=== PATIENT | female | born 1950 | race Caucasian/White ===

== ENCOUNTER → 2017-09-10 | Outpatient (CLI) | payer MEDICARE, OTHER ==
[2017-09-10 09:38] LABS: Basophils # (auto) 0.1 uL; Eosinophils # (auto) 0.4 uL; Eosinophils % (auto) 4.8 % (0.0-7.0); Hemoglobin 10.7 g/dL (12.2-16.2); Lymphocytes # (auto) 1.8 uL; Monocytes # (auto) 0.6 uL; Neutrophils # (auto) 6.2 uL; Nucleated Red Blood Cells % 0.1 %
[2017-09-10 09:39] LABS: Basophils % (auto) 0.9 % (0.0-2.0); Hematocrit 34.6 % (36.0-46.0); Mean Corpuscular Hemoglobin 21.1 pg (28.0-32.0); Mean Corpuscular Volume 68.2 fL (80.0-100.0); Monocytes % (auto) 6.3 % (0.0-12.0); Platelet Count (auto) 369 10^3/uL (140-450); Red Blood Cells 5.08 10^6/uL (4.0-5.20); White Blood Cell 9.1 10^3/uL (4.4-10.8)
[2017-09-10 09:45] LABS: Red Cell Distribution Width 24.1 % (11.8-14.3)
[2017-09-10 13:14] LABS: Cholesterol 113 mg/dL (< 200); HDL Cholesterol 49 mg/dL (40-59); LDL Cholesterol 61 mg/dL (< 100); Triglycerides 70 mg/dL (< 150)
== END | disposition home or self-care (01) ==
LOC: LAB 08:55
PROVIDERS: ATTEND Internal Medicine
DX: E11.9 Type 2 diabetes mellitus without complications (principal); E78.00 Pure hypercholesterolemia, unspecified; D64.9 Anemia, unspecified
CPT/HCPCS: 36415; 80061; 83036; 85025

== ENCOUNTER → 2017-10-07 | Outpatient (CLI) | payer MEDICARE, OTHER ==
[2017-10-07 16:04] LABS: Basophils # (auto) 0.1 uL; Basophils % (auto) 0.9 % (0.0-2.0); Eosinophils # (auto) 0.4 uL; Hemoglobin 10.5 g/dL (12.2-16.2); Mean Corpuscular Volume 69.6 fL (80.0-100.0); Monocytes # (auto) 0.6 uL
[2017-10-07 16:06] LABS: Hematocrit 33.5 % (36.0-46.0); Lymphocytes # (auto) 1.9 uL; Lymphocytes % (auto) 20.4 % (10.0-50.0); Mean Corpuscular Hemoglobin 21.7 pg (28.0-32.0); Mean Corpuscular Hgb Conc. 31.2 g/dL (32.0-36.0); Monocytes % (auto) 6.3 % (0.0-12.0); Neutrophils # (auto) 6.3 uL; Neutrophils % (auto) 68.4 % (37.0-80.0); Platelet Count (auto) 370 10^3/uL (140-450); Red Blood Cells 4.82 10^6/uL (4.0-5.20); White Blood Cell 9.2 10^3/uL (4.4-10.8)
[2017-10-07 16:46] LABS: % Iron Saturation 4.5 % (15-50)
== END | disposition home or self-care (01) ==
LOC: LAB 15:28
PROVIDERS: ATTEND Internal Medicine
DX: D64.9 Anemia, unspecified (principal); E11.9 Type 2 diabetes mellitus without complications; E78.00 Pure hypercholesterolemia, unspecified
CPT/HCPCS: 36415; 82728; 83540; 83550; 85025

== ENCOUNTER → 2017-11-04 | Outpatient (CLI) | payer MEDICARE, OTHER ==
[2017-11-04 14:05] LABS: Eosinophils # (auto) 0.3 uL; Hemoglobin 11.4 g/dL (12.2-16.2); Mean Corpuscular Volume 73.7 fL (80.0-100.0); Monocytes # (auto) 0.5 uL; Monocytes % (auto) 5.9 % (0.0-12.0)
[2017-11-04 14:09] LABS: Basophils # (auto) 0.1 uL; Basophils % (auto) 1.2 % (0.0-2.0); Eosinophils % (auto) 3.4 % (0.0-7.0); Hematocrit 36.2 % (36.0-46.0); Lymphocytes # (auto) 1.6 uL; Lymphocytes % (auto) 19.1 % (10.0-50.0); Mean Corpuscular Hemoglobin 23.1 pg (28.0-32.0); Mean Corpuscular Hgb Conc. 31.4 g/dL (32.0-36.0); Neutrophils # (auto) 5.9 uL; Neutrophils % (auto) 70.4 % (37.0-80.0); Nucleated Red Blood Cells % 0.1 %; Platelet Count (auto) 347 10^3/uL (140-450); Red Blood Cells 4.91 10^6/uL (4.0-5.20); White Blood Cell 8.4 10^3/uL (4.4-10.8)
[2017-11-04 14:10] LABS: Red Cell Distribution Width 25.6 % (11.8-14.3)
[2017-11-04 14:14] LABS: % Iron Saturation 12.8 % (15-50)
== END | disposition home or self-care (01) ==
LOC: LAB 13:45
PROVIDERS: ATTEND Internal Medicine
DX: D50.9 Iron deficiency anemia, unspecified (principal); E78.00 Pure hypercholesterolemia, unspecified; E11.9 Type 2 diabetes mellitus without complications
CPT/HCPCS: 36415; 83540; 83550; 85025

== ENCOUNTER → 2017-12-09 | Outpatient (CLI) | payer MEDICARE, OTHER ==
[2017-12-09 13:15] LABS: Basophils # (auto) 0.1 uL; Eosinophils # (auto) 0.2 uL; Lymphocytes # (auto) 2.3 uL; Mean Corpuscular Hemoglobin 25.6 pg (28.0-32.0); Monocytes # (auto) 0.6 uL; Nucleated Red Blood Cells % 0.1 %
[2017-12-09 13:16] LABS: Basophils % (auto) 1.1 % (0.0-2.0); Eosinophils % (auto) 2.1 % (0.0-7.0); Hematocrit 43.5 % (36.0-46.0); Hemoglobin 14.2 g/dL (12.2-16.2); Lymphocytes % (auto) 25.1 % (10.0-50.0); Mean Corpuscular Hgb Conc. 32.7 g/dL (32.0-36.0); Mean Corpuscular Volume 78.4 fL (80.0-100.0); Monocytes % (auto) 6.6 % (0.0-12.0); Neutrophils % (auto) 65.1 % (37.0-80.0); Platelet Count (auto) 320 10^3/uL (140-450); Red Blood Cells 5.54 10^6/uL (4.0-5.20); White Blood Cell 9.2 10^3/uL (4.4-10.8)
[2017-12-09 13:40] LABS: Red Cell Distribution Width 28.4 % (11.8-14.3)
[2017-12-09 14:12] LABS: % Iron Saturation 22.3 % (15-50)
== END | disposition home or self-care (01) ==
LOC: LAB 12:59
PROVIDERS: ATTEND Internal Medicine
DX: D50.9 Iron deficiency anemia, unspecified (principal); E11.9 Type 2 diabetes mellitus without complications
CPT/HCPCS: 36415; 82728; 83540; 83550; 85025

== ENCOUNTER → 2018-04-29 | Outpatient (CLI) | payer MEDICARE, OTHER ==
[2018-04-29 14:24] LABS: Basophils # (auto) 0.1 uL; Basophils % (auto) 0.6 % (0.0-2.0); Eosinophils # (auto) 0.4 uL; Hematocrit 44.6 % (36.0-46.0); Hemoglobin 14.7 g/dL (12.2-16.2); Lymphocytes # (auto) 1.6 uL; Lymphocytes % (auto) 16.5 % (10.0-50.0); Mean Corpuscular Hemoglobin 29.7 pg (28.0-32.0); Mean Corpuscular Hgb Conc. 32.9 g/dL (32.0-36.0); Mean Corpuscular Volume 90.4 fL (80.0-100.0); Monocytes # (auto) 0.6 uL; Monocytes % (auto) 6.2 % (0.0-12.0); Neutrophils # (auto) 6.9 uL; Neutrophils % (auto) 72.7 % (37.0-80.0); Platelet Count (auto) 312 10^3/uL (140-450); Red Blood Cells 4.94 10^6/uL (4.0-5.20); Red Cell Distribution Width 15.4 % (11.8-14.3); White Blood Cell 9.5 10^3/uL (4.4-10.8)
[2018-04-29 14:54] LABS: % Iron Saturation 14.2 % (15-50)
== END | disposition home or self-care (01) ==
LOC: LAB 13:53
PROVIDERS: ATTEND Internal Medicine
DX: D50.9 Iron deficiency anemia, unspecified (principal); E11.9 Type 2 diabetes mellitus without complications; E78.00 Pure hypercholesterolemia, unspecified
CPT/HCPCS: 36415; 82728; 83036; 83540; 83550; 84439; 84443; 85025

== ENCOUNTER → 2018-06-03 | Outpatient (CLI) | payer MEDICARE, OTHER ==
[~2018-06-03] MED LIST: EPINEPHrine HCL 1 MG/1 ML AMP ONE
== END | disposition home or self-care (01) ==
LOC: Rad HDHVI 12:54
PROVIDERS: ATTEND Internal Medicine Cardiovascular Disease
DX: I34.0 Nonrheumatic mitral (valve) insufficiency (principal); I10 Essential (primary) hypertension; E78.2 Mixed hyperlipidemia
CPT/HCPCS: 93306; 93880

== ENCOUNTER → 2018-06-12 | Outpatient (CLI) | payer MEDICARE, OTHER ==
[~2018-06-12] VITALS: Ht 30.5 cm; Wt 0.5 kg
[~2018-06-12] MED LIST changes: +ADENOSINE 90 MG/30 ML INJ IV ONE; +ADENOSINE 99 MG in GIVE UN-DILUTED 0 ML IV ONE; -EPINEPHrine HCL 1 MG/1 ML AMP ONE
[2018-06-12 12:51] LABS: Urine Blood Negative /uL (Negative); Urine Specific Gravity 1.023 (1.001-1.035)
[2018-06-12 12:54] LABS: Basophils # (auto) 0.1 uL; Basophils % (auto) 0.9 % (0.0-2.0); Eosinophils # (auto) 0.2 uL; Eosinophils % (auto) 2.6 % (0.0-7.0); Hematocrit 44.1 % (36.0-46.0); Hemoglobin 14.5 g/dL (12.2-16.2); Lymphocytes # (auto) 1.3 uL; Lymphocytes % (auto) 15.4 % (10.0-50.0); Mean Corpuscular Hemoglobin 29.4 pg (28.0-32.0); Mean Corpuscular Hgb Conc. 32.9 g/dL (32.0-36.0); Mean Corpuscular Volume 89.1 fL (80.0-100.0); Monocytes # (auto) 0.5 uL; Monocytes % (auto) 5.9 % (0.0-12.0); Neutrophils # (auto) 6.4 uL; Neutrophils % (auto) 75.2 % (37.0-80.0); Nucleated Red Blood Cells % 0.3 %; Platelet Count (auto) 308 10^3/uL (140-450); Red Blood Cells 4.95 10^6/uL (4.0-5.20); Red Cell Distribution Width 15.6 % (11.8-14.3); White Blood Cell 8.5 10^3/uL (4.4-10.8)
[2018-06-12 13:07] LABS: Albumin 3.7 g/dL (3.4-5.0); Potassium 3.9 mmol/L (3.5-5.1)
[2018-06-12 13:14] LABS: BUN/Creatinine Ratio 24.7; Bilirubin, Total 0.6 mg/dL (0.2-1.0); Calcium 9.1 mg/dL (8.5-10.1); Total Protein 7.6 g/dL (6.4-8.2)
[2018-06-12 13:18] LABS: Free T4 (Free Thyroxine) 0.99 ng/dL (0.89-1.76)
== END | disposition home or self-care (01) ==
LOC: Rad HDHVI 07:55
PROVIDERS: ATTEND Internal Medicine Cardiovascular Disease
DX: I10 Essential (primary) hypertension (principal); E78.2 Mixed hyperlipidemia; E11.9 Type 2 diabetes mellitus without complications; E03.9 Hypothyroidism, unspecified; E55.9 Vitamin D deficiency, unspecified; D51.9 Vitamin B12 deficiency anemia, unspecified; N39.0 Urinary tract infection, site not specified
CPT/HCPCS: 36415; 78452; 80053; 80061; 81003; 82306; 82607; 83036; 84439; 84443; 85025; 87086; 93005; 96374; 96375; A9500; J0153

== ENCOUNTER → 2018-09-15 | Outpatient (CLI) | payer MEDICARE, OTHER ==
[2018-09-15 08:09] LABS: Cholesterol 128 mg/dL (< 200); Triglycerides 113 mg/dL (< 150)
[2018-09-15 08:11] LABS: HDL Cholesterol 53 mg/dL (40-59); LDL Cholesterol 64 mg/dL (< 100)
== END | disposition home or self-care (01) ==
LOC: LAB 07:40
PROVIDERS: ATTEND Internal Medicine
DX: E11.9 Type 2 diabetes mellitus without complications (principal); E78.5 Hyperlipidemia, unspecified
CPT/HCPCS: 36415; 80061; 83036

== ENCOUNTER → 2018-12-31 | Outpatient (CLI) | payer MEDICARE, OTHER ==
[2018-12-31 13:15] LABS: Alanine Aminotransferase 24 U/L (13-56); Albumin 3.9 g/dL (3.4-5.0); Anion Gap 10 (5-15); Aspartate Aminotransferase 10 U/L (15-37); BUN/Creatinine Ratio 23.5; Basophils # (auto) 0.1 uL; Basophils % (auto) 0.8 % (0.0-2.0); Blood Urea Nitrogen 24 mg/dL (7-18); Calcium 9.5 mg/dL (8.5-10.1); Carbon Dioxide 26 mmol/L (21-32); Chloride 103 mmol/L (98-107); Eosinophils # (auto) 0.3 uL; Eosinophils % (auto) 3.1 % (0.0-7.0); GFR African American 69 mL/min; GFR Non-African American 57 mL/min; Glucose 148 mg/dL (74-106); Hemoglobin 15.8 g/dL (12.2-16.2); Lymphocytes # (auto) 1.8 uL; Lymphocytes % (auto) 20.5 % (10.0-50.0); Mean Corpuscular Hemoglobin 30.1 pg (28.0-32.0); Mean Corpuscular Hgb Conc. 33.7 g/dL (32.0-36.0); Mean Corpuscular Volume 89.5 fL (80.0-100.0); Monocytes # (auto) 0.6 uL; Monocytes % (auto) 6.5 % (0.0-12.0); Neutrophils # (auto) 6.2 uL; Neutrophils % (auto) 69.1 % (37.0-80.0); Nucleated Red Blood Cells % 0.1 %; Platelet Count (auto) 331 10^3/uL (140-450); Potassium 4.4 mmol/L (3.5-5.1); Red Blood Cells 5.25 10^6/uL (4.0-5.20); Sodium 139 mmol/L (136-145)
[2018-12-31 13:18] LABS: Alkaline Phosphatase 87 U/L (45-117); Bilirubin, Total 0.6 mg/dL (0.2-1.0)
== END | disposition home or self-care (01) ==
LOC: LAB 12:34
PROVIDERS: ATTEND Internal Medicine
DX: E11.9 Type 2 diabetes mellitus without complications (principal); I10 Essential (primary) hypertension
CPT/HCPCS: 36415; 80053; 83036; 84443; 85025

== ENCOUNTER → 2019-03-03 | Outpatient (CLI) | payer MEDICARE, OTHER | END | disposition home or self-care (01) | LOC: Rad HDHVI 12:51 | PROVIDERS: ATTEND Internal Medicine Cardiovascular Disease | DX: I08.8 Other rheumatic multiple valve diseases (principal); R06.02 Shortness of breath; R42 Dizziness and giddiness | CPT/HCPCS: 93306 ==

== ENCOUNTER → 2019-03-22 | Outpatient (CLI) | payer MEDICARE, OTHER ==
[~2019-03-22] VITALS: Ht 167.6 cm; Wt 118.8 kg
[~2019-03-22] MED LIST changes: +ADENOSINE 100 MG in GIVE UN-DILUTED 0 ML IV ONE; -ADENOSINE 99 MG in GIVE UN-DILUTED 0 ML IV ONE
== END | disposition home or self-care (01) ==
LOC: Rad HDHVI 10:02
PROVIDERS: ATTEND Internal Medicine Cardiovascular Disease
DX: I10 Essential (primary) hypertension (principal); E78.00 Pure hypercholesterolemia, unspecified; E11.9 Type 2 diabetes mellitus without complications
CPT/HCPCS: 78452; 93005; 96374; 96375; A9500; J0153

== ENCOUNTER → 2019-04-14 | Outpatient (CLI) | payer MEDICARE, OTHER ==
[2019-04-14 12:31] LABS: Albumin 3.8 g/dL (3.4-5.0)
[2019-04-14 12:35] LABS: BUN/Creatinine Ratio 21.7; Bilirubin, Total 0.7 mg/dL (0.2-1.0)
== END | disposition home or self-care (01) ==
LOC: LAB 11:50
PROVIDERS: ATTEND Internal Medicine
DX: E11.22 Type 2 diabetes mellitus with diabetic chronic kidney disease (principal); N18.3 Chronic kidney disease, stage 3 (moderate)
CPT/HCPCS: 36415; 80053; 83036

== ENCOUNTER → 2019-09-02 | Outpatient (CLI) | payer MEDICARE, OTHER ==
[2019-09-02 08:43] LABS: Basophils # (auto) 0.1 10 ^3/uL (0-0.2); Basophils % (auto) 0.8 % (0.0-2.0); Eosinophils # (auto) 0.3 10 ^3/uL (0-0.8); Eosinophils % (auto) 3.4 % (0.0-7.0); Hematocrit 45.6 % (36.0-46.0); Hemoglobin 15.2 g/dL (12.2-16.2); Lymphocytes # (auto) 1.6 10 ^3/uL (0.4-5.4); Lymphocytes % (auto) 20.9 % (10.0-50.0); Mean Corpuscular Hemoglobin 29.4 pg (28.0-32.0); Mean Corpuscular Hgb Conc. 33.2 g/dL (32.0-36.0); Mean Corpuscular Volume 88.5 fL (80.0-100.0); Monocytes # (auto) 0.4 10 ^3/uL (0-1.3); Monocytes % (auto) 5.8 % (0.0-12.0); Neutrophils # (auto) 5.3 10 ^3/uL (1.6-8.6); Neutrophils % (auto) 69.1 % (37.0-80.0); Nucleated Red Blood Cells % 0.1 %; Platelet Count (auto) 283 10^3/uL (140-450); Red Blood Cells 5.16 10^6/uL (4.0-5.20); Red Cell Distribution Width 15.4 % (11.8-14.3); White Blood Cell 7.7 10^3/uL (4.4-10.8)
[2019-09-02 08:46] LABS: Urine Bacteria FEW /hpf (None Seen); Urine Blood Negative /uL (Negative); Urine Budding Yeast OCCASIONAL /hpf (None Seen); Urine Specific Gravity 1.016 (1.001-1.035); Urine WBC 1 /hpf (0 - 5)
[2019-09-02 09:40] LABS: Potassium 3.7 mmol/L (3.5-5.1)
[2019-09-02 09:54] LABS: Albumin 3.8 g/dL (3.4-5.0); BUN/Creatinine Ratio 25.3; Bilirubin, Total 0.8 mg/dL (0.2-1.0); Calcium 9.4 mg/dL (8.5-10.1); Total Protein 7.8 g/dL (6.4-8.2)
== END | disposition home or self-care (01) ==
LOC: LAB 08:06
PROVIDERS: ATTEND Internal Medicine
DX: E11.21 Type 2 diabetes mellitus with diabetic nephropathy (principal); E11.42 Type 2 diabetes mellitus with diabetic polyneuropathy
CPT/HCPCS: 36415; 80053; 80061; 81001; 82043; 83036; 84155; 84165; 84439; 84443; 85025; 85652

== ENCOUNTER → 2019-12-23 | Outpatient (CLI) | payer MEDICARE, OTHER ==
[2019-12-23 15:50] LABS: Magnesium 2.1 mg/dL (1.6-2.6); Potassium 3.9 mmol/L (3.5-5.1)
== END | disposition home or self-care (01) ==
LOC: LAB 15:19
PROVIDERS: ATTEND Internal Medicine
DX: E11.40 Type 2 diabetes mellitus with diabetic neuropathy, unspecified (principal); R35.8 Other polyuria; R25.2 Cramp and spasm
CPT/HCPCS: 36415; 83036; 83735; 84132

== ENCOUNTER → 2020-01-12 | Outpatient (CLI) | payer MEDICARE, OTHER | END | disposition home or self-care (01) | LOC: Rad HDHVI 09:56 | PROVIDERS: ATTEND Internal Medicine Cardiovascular Disease | DX: I35.8 Other nonrheumatic aortic valve disorders (principal); I25.10 Atherosclerotic heart disease of native coronary artery without angina pectoris; I11.9 Hypertensive heart disease without heart failure; R06.02 Shortness of breath | CPT/HCPCS: 93306 ==

== ENCOUNTER → 2020-03-01 | Outpatient (CLI) | payer MEDICARE, OTHER | END | disposition home or self-care (01) | LOC: Rad HDHVI 10:52 | PROVIDERS: ATTEND Internal Medicine Cardiovascular Disease | DX: I25.10 Atherosclerotic heart disease of native coronary artery without angina pectoris (principal) ==

== ENCOUNTER → 2020-05-11 | Outpatient (CLI) | payer MEDICARE, OTHER ==
[2020-05-11 15:04] LABS: Albumin 3.6 g/dL (3.4-5.0); BUN/Creatinine Ratio 24.5; Calcium 8.9 mg/dL (8.5-10.1); Potassium 3.8 mmol/L (3.5-5.1)
[2020-05-11 15:07] LABS: Bilirubin, Total 0.5 mg/dL (0.2-1.0); Total Protein 7.5 g/dL (6.4-8.2)
== END | disposition home or self-care (01) ==
LOC: LAB 14:04
PROVIDERS: ATTEND Internal Medicine
DX: E11.9 Type 2 diabetes mellitus without complications (principal); I10 Essential (primary) hypertension
CPT/HCPCS: 36415; 80053; 83036; 84443

== ENCOUNTER → 2020-09-18 | Outpatient (CLI) | payer MEDICARE, OTHER ==
[2020-09-18 08:48] LABS: Basophils # (auto) 0.1 10 ^3/uL (0-0.2); Basophils % (auto) 0.8 % (0.0-2.0); Eosinophils # (auto) 0.3 10 ^3/uL (0-0.8); Eosinophils % (auto) 4.8 % (0.0-7.0); Hematocrit 42.6 % (36.0-46.0); Hemoglobin 14.5 g/dL (12.2-16.2); Lymphocytes # (auto) 1.6 10 ^3/uL (0.4-5.4); Lymphocytes % (auto) 21.9 % (10.0-50.0); Mean Corpuscular Hemoglobin 29.7 pg (28.0-32.0); Mean Corpuscular Volume 87.3 fL (80.0-100.0); Monocytes # (auto) 0.5 10 ^3/uL (0-1.3); Neutrophils # (auto) 4.7 10 ^3/uL (1.6-8.6); Neutrophils % (auto) 65.5 % (37.0-80.0); Nucleated Red Blood Cells % 0.1 %; Platelet Count (auto) 295 10^3/uL (140-450); Red Blood Cells 4.88 10^6/uL (4.0-5.20); Red Cell Distribution Width 16.2 % (11.8-14.3); White Blood Cell 7.2 10^3/uL (4.4-10.8)
[2020-09-18 10:57] LABS: Cholesterol 133 mg/dL (< 200); HDL Cholesterol 51 mg/dL (40-59); LDL Cholesterol 62 mg/dL (< 100); Triglycerides 95 mg/dL (< 150)
== END | disposition home or self-care (01) ==
LOC: LAB 08:10
PROVIDERS: ATTEND Internal Medicine
DX: E11.9 Type 2 diabetes mellitus without complications (principal); E03.9 Hypothyroidism, unspecified
CPT/HCPCS: 36415; 80061; 83036; 84439; 84443; 85025

== ENCOUNTER → 2020-11-16 | Outpatient (CLI) | payer MEDICARE, OTHER | END | disposition home or self-care (01) | LOC: LAB 12:02 | PROVIDERS: ATTEND Internal Medicine | DX: M46.1 Sacroiliitis, not elsewhere classified (principal); M46.06 Spinal enthesopathy, lumbar region; M25.50 Pain in unspecified joint; E03.9 Hypothyroidism, unspecified; M51.9 Unspecified thoracic, thoracolumbar and lumbosacral intervertebral disc disorder | CPT/HCPCS: 36415; 83970; 84443; 84550; 86200; 86225; 86235; 86812 ==

== ENCOUNTER → 2021-05-24 | Outpatient (CLI) | payer MEDICARE, OTHER ==
[2021-05-24 14:19] LABS: Basophils # (auto) 0.1 10 ^3/uL (0-0.2); Basophils % (auto) 1.4 % (0.0-2.0); Eosinophils # (auto) 0.2 10 ^3/uL (0-0.8); Eosinophils % (auto) 2.8 % (0.0-7.0); Hematocrit 42.8 % (36.0-46.0); Hemoglobin 13.7 g/dL (12.2-16.2); Lymphocytes # (auto) 1.1 10 ^3/uL (0.4-5.4); Lymphocytes % (auto) 14.9 % (10.0-50.0); Mean Corpuscular Hemoglobin 27.8 pg (28.0-32.0); Mean Corpuscular Hgb Conc. 32.1 g/dL (32.0-36.0); Mean Corpuscular Volume 86.7 fL (80.0-100.0); Monocytes # (auto) 0.6 10 ^3/uL (0-1.3); Monocytes % (auto) 7.8 % (0.0-12.0); Neutrophils # (auto) 5.3 10 ^3/uL (1.6-8.6); Neutrophils % (auto) 73.1 % (37.0-80.0); Red Blood Cells 4.93 10^6/uL (4.0-5.20); Red Cell Distribution Width 16.8 % (11.8-14.3); White Blood Cell 7.2 10^3/uL (4.4-10.8)
[2021-05-24 14:52] LABS: Albumin 3.3 g/dL (3.4-5.0); Calcium 9.3 mg/dL (8.5-10.1); Potassium 4.1 mmol/L (3.5-5.1)
[2021-05-24 14:57] LABS: BUN/Creatinine Ratio 18.5; Bilirubin, Total 0.4 mg/dL (0.2-1.0)
== END | disposition home or self-care (01) ==
LOC: LAB 13:35
PROVIDERS: ATTEND Internal Medicine
DX: I10 Essential (primary) hypertension (principal); E03.9 Hypothyroidism, unspecified; E11.9 Type 2 diabetes mellitus without complications
CPT/HCPCS: 36415; 80053; 83036; 84439; 84443; 85025

== ENCOUNTER → 2021-07-12 | Outpatient (CLI) | payer MEDICARE, OTHER ==
[2021-07-12 07:50] LABS: Basophils # (auto) 0 10 ^3/uL (0-0.2); Basophils % (auto) 0.5 % (0.0-2.0); Eosinophils # (auto) 0.2 10 ^3/uL (0-0.8); Eosinophils % (auto) 2.8 % (0.0-7.0); Hematocrit 41.3 % (36.0-46.0); Hemoglobin 13.4 g/dL (12.2-16.2); Lymphocytes # (auto) 1.3 10 ^3/uL (0.4-5.4); Lymphocytes % (auto) 17.1 % (10.0-50.0); Mean Corpuscular Hemoglobin 28.6 pg (28.0-32.0); Mean Corpuscular Hgb Conc. 32.5 g/dL (32.0-36.0); Monocytes # (auto) 0.5 10 ^3/uL (0-1.3); Monocytes % (auto) 6.6 % (0.0-12.0); Neutrophils # (auto) 5.4 10 ^3/uL (1.6-8.6); Nucleated Red Blood Cells % 0.1 %; Red Blood Cells 4.69 10^6/uL (4.0-5.20); Red Cell Distribution Width 18.1 % (11.8-14.3); White Blood Cell 7.4 10^3/uL (4.4-10.8)
[2021-07-12 08:02] LABS: INR 0.98 (0.9-1.15)
[2021-07-12 08:39] LABS: Potassium 3.9 mmol/L (3.5-5.1)
[2021-07-12 08:49] LABS: Albumin 3.5 g/dL (3.4-5.0); BUN/Creatinine Ratio 21.3; Bilirubin, Total 0.4 mg/dL (0.2-1.0); Calcium 9.3 mg/dL (8.5-10.1)
== END | disposition home or self-care (01) ==
LOC: LAB 07:22
PROVIDERS: ATTEND Internal Medicine
DX: Z01.812 Encounter for preprocedural laboratory examination (principal); I10 Essential (primary) hypertension; E11.9 Type 2 diabetes mellitus without complications
CPT/HCPCS: 36415; 80053; 85025; 85610

== ENCOUNTER → 2021-08-28 | Outpatient (CLI) | payer MEDICARE, OTHER | END | disposition home or self-care (01) | LOC: RT 10:30 | PROVIDERS: ATTEND Internal Medicine Pulmonary Disease | DX: J44.9 Chronic obstructive pulmonary disease, unspecified (principal); Z20.822 Contact with and (suspected) exposure to COVID-19 | CPT/HCPCS: 36415; 94060; 94727; 94729 ==

== ENCOUNTER → 2021-10-17 | Outpatient (CLI) | payer MEDICARE, OTHER | END | disposition home or self-care (01) | LOC: XYW 09:08 | PROVIDERS: ATTEND Podiatrist | DX: I70.202 Unspecified atherosclerosis of native arteries of extremities, left leg (principal) | CPT/HCPCS: 93925 ==

== ENCOUNTER → 2021-11-14 | Outpatient (CLI) | payer MEDICARE, OTHER ==
[2021-11-14 10:48] LABS: Urine Bacteria FEW /hpf (None Seen); Urine Blood 2+ /uL (Negative); Urine Specific Gravity 1.026 (1.001-1.035); Urine WBC <1 /hpf (0 - 5)
[2021-11-14 10:55] LABS: Basophils # (auto) 0.1 10 ^3/uL (0-0.2); Basophils % (auto) 0.9 % (0.0-2.0); Eosinophils # (auto) 0.3 10 ^3/uL (0-0.8); Eosinophils % (auto) 3.8 % (0.0-7.0); Hematocrit 41.3 % (36.0-46.0); Hemoglobin 13.8 g/dL (12.2-16.2); Lymphocytes # (auto) 1.1 10 ^3/uL (0.4-5.4); Mean Corpuscular Hemoglobin 29.6 pg (28.0-32.0); Mean Corpuscular Hgb Conc. 33.5 g/dL (32.0-36.0); Mean Corpuscular Volume 88.3 fL (80.0-100.0); Monocytes # (auto) 0.5 10 ^3/uL (0-1.3); Monocytes % (auto) 7.1 % (0.0-12.0); Neutrophils # (auto) 5.1 10 ^3/uL (1.6-8.6); Neutrophils % (auto) 72.2 % (37.0-80.0); Nucleated Red Blood Cells % 0.1 %; Red Blood Cells 4.67 10^6/uL (4.0-5.20); Red Cell Distribution Width 15.8 % (11.8-14.3)
[2021-11-14 11:03] LABS: Potassium 4.4 mmol/L (3.5-5.1)
[2021-11-14 11:05] LABS: Free T4 (Free Thyroxine) 1.17 ng/dL (0.89-1.76)
[2021-11-14 11:14] LABS: Albumin 3.4 g/dL (3.4-5.0); BUN/Creatinine Ratio 26.8; Bilirubin, Total 0.4 mg/dL (0.2-1.0); Calcium 9.4 mg/dL (8.5-10.1); Total Protein 7.1 g/dL (6.4-8.2)
== END | disposition home or self-care (01) ==
LOC: LAB 09:13
PROVIDERS: ATTEND Internal Medicine
DX: D35.02 Benign neoplasm of left adrenal gland (principal); I10 Essential (primary) hypertension; E11.9 Type 2 diabetes mellitus without complications
CPT/HCPCS: 36415; 80053; 80061; 81001; 82043; 82088; 82384; 82607; 83036; 84439; 85025; 85652

== ENCOUNTER → 2022-04-08 | Outpatient (CLI) | payer MEDICARE, OTHER | END | disposition home or self-care (01) | LOC: Rad HDHVI 11:30 | PROVIDERS: ATTEND Internal Medicine Cardiovascular Disease | DX: M16.11 Unilateral primary osteoarthritis, right hip (principal); M25.751 Osteophyte, right hip; M51.27 Other intervertebral disc displacement, lumbosacral region; M47.896 Other spondylosis, lumbar region; M48.061 Spinal stenosis, lumbar region without neurogenic claudication; M41.86 Other forms of scoliosis, lumbar region | CPT/HCPCS: 72131; 73700 ==

== ENCOUNTER → 2022-04-17 | Outpatient (CLI) | payer MEDICARE, OTHER | END | disposition home or self-care (01) | LOC: Rad HDHVI 13:02 | PROVIDERS: ATTEND Internal Medicine Cardiovascular Disease | DX: I08.3 Combined rheumatic disorders of mitral, aortic and tricuspid valves (principal); R00.2 Palpitations; R06.02 Shortness of breath | CPT/HCPCS: 93306 ==

== ENCOUNTER → 2022-04-22 | Outpatient (CLI) | payer MEDICARE, OTHER ==
[~2022-04-22] VITALS: Ht 167.6 cm; Wt 126.1 kg
[~2022-04-22] MED LIST changes: -ADENOSINE 100 MG in GIVE UN-DILUTED 0 ML IV ONE; +ADENOSINE 106 MG in GIVE UN-DILUTED 0 ML IV ONE
== END | disposition home or self-care (01) ==
LOC: Rad HDHVI 12:59
PROVIDERS: ATTEND Internal Medicine Cardiovascular Disease
DX: I10 Essential (primary) hypertension (principal); E78.5 Hyperlipidemia, unspecified; R06.02 Shortness of breath; E11.21 Type 2 diabetes mellitus with diabetic nephropathy; E11.40 Type 2 diabetes mellitus with diabetic neuropathy, unspecified; E78.00 Pure hypercholesterolemia, unspecified; E66.01 Morbid (severe) obesity due to excess calories; Z82.49 Family history of ischemic heart disease and other diseases of the circulatory system; Z79.84 Long term (current) use of oral hypoglycemic drugs; Z79.82 Long term (current) use of aspirin; Z79.899 Other long term (current) drug therapy
CPT/HCPCS: 78452; 93005; 96374; 96375; A9500; J0153

== ENCOUNTER → 2022-08-06 | Outpatient (CLI) | payer MEDICARE, OTHER ==
[2022-08-06 11:16] LABS: Basophils # (auto) 0.1 10 ^3/uL (0-0.2); Basophils % (auto) 0.8 % (0.0-2.0); Eosinophils # (auto) 0.2 10 ^3/uL (0-0.8); Eosinophils % (auto) 2.9 % (0.0-7.0); Hematocrit 42.4 % (36.0-46.0); Hemoglobin 14.1 g/dL (12.2-16.2); Lymphocytes # (auto) 1.3 10 ^3/uL (0.4-5.4); Lymphocytes % (auto) 18.7 % (10.0-50.0); Mean Corpuscular Hemoglobin 29.7 pg (28.0-32.0); Mean Corpuscular Hgb Conc. 33.2 g/dL (32.0-36.0); Mean Corpuscular Volume 89.5 fL (80.0-100.0); Monocytes # (auto) 0.5 10 ^3/uL (0-1.3); Monocytes % (auto) 7.2 % (0.0-12.0); Neutrophils % (auto) 70.4 % (37.0-80.0); Red Blood Cells 4.74 10^6/uL (4.0-5.20); Red Cell Distribution Width 16.1 % (11.8-14.3); White Blood Cell 7.1 10^3/uL (4.4-10.8)
[2022-08-06 12:01] LABS: Potassium 4.7 mmol/L (3.5-5.1)
[2022-08-06 12:25] LABS: Albumin 3.7 g/dL (3.4-5.0); BUN/Creatinine Ratio 27.7; Bilirubin, Total 0.4 mg/dL (0.2-1.0); Calcium 9.2 mg/dL (8.5-10.1)
== END | disposition home or self-care (01) ==
LOC: LAB 10:59
PROVIDERS: ATTEND Internal Medicine
DX: I10 Essential (primary) hypertension (principal); E11.9 Type 2 diabetes mellitus without complications; K86.2 Cyst of pancreas
CPT/HCPCS: 36415; 80053; 83036; 85025; 86301

== ENCOUNTER → 2023-05-07 | Outpatient (CLI) | payer MEDICARE, OTHER ==
[~2023-05-07] MED LIST changes: -ADENOSINE 106 MG in GIVE UN-DILUTED 0 ML IV ONE; -ADENOSINE 90 MG/30 ML INJ IV ONE; +ASPI1TAB20 PO; +ATO40T PO; +CALC-400 PO; +INSLANTI SC; +INSU100I4 SC; +LEVO25TA6 PO; +METF-490 PO; +NAPR220C PO; +VALS320T PO
== END | disposition home or self-care (01) ==
LOC: Rad HDHVI 09:50
PROVIDERS: ATTEND Internal Medicine Cardiovascular Disease
DX: I65.23 Occlusion and stenosis of bilateral carotid arteries (principal); I10 Essential (primary) hypertension; E78.5 Hyperlipidemia, unspecified
CPT/HCPCS: 93880

== ENCOUNTER → 2023-05-08 | Outpatient (CLI) | payer MEDICARE, OTHER | END | disposition home or self-care (01) | LOC: Rad HDHVI 12:56 | PROVIDERS: ATTEND Internal Medicine Cardiovascular Disease | DX: I08.3 Combined rheumatic disorders of mitral, aortic and tricuspid valves (principal); I11.9 Hypertensive heart disease without heart failure; E78.5 Hyperlipidemia, unspecified | CPT/HCPCS: 93306 ==

== ENCOUNTER → 2023-05-21 | Outpatient (CLI) | payer MEDICARE, OTHER ==
[~2023-05-21] VITALS: Ht 167.6 cm; Wt 122.5 kg
[~2023-05-21] MED LIST changes: +ADENOSINE 103 MG in GIVE UN-DILUTED 0 ML IV ONE; +ADENOSINE 90 MG/30 ML INJ IV ONE; +CHOL20007 OR; +EMPA1TAB PO; +GABA-1308 PO; +HYDR200T36 PO; +LEUC5TAB PO; +METH2.5T PO; +METO25TA5 PO
== END | disposition home or self-care (01) ==
LOC: Rad HDHVI 12:53
PROVIDERS: ATTEND Internal Medicine Cardiovascular Disease
DX: I11.0 Hypertensive heart disease with heart failure (principal); I50.33 Acute on chronic diastolic (congestive) heart failure; E11.21 Type 2 diabetes mellitus with diabetic nephropathy; E78.00 Pure hypercholesterolemia, unspecified; Z82.49 Family history of ischemic heart disease and other diseases of the circulatory system
CPT/HCPCS: 78452; 93005; 96374; 96375; A9500; J0153

== ENCOUNTER → 2023-05-29 | Outpatient (CLI) | payer MEDICARE, OTHER ==
[~2023-05-29] MED LIST changes: -ADENOSINE 103 MG in GIVE UN-DILUTED 0 ML IV ONE; -ADENOSINE 90 MG/30 ML INJ IV ONE; -CHOL20007 OR; -EMPA1TAB PO; -GABA-1308 PO; -HYDR200T36 PO; -LEUC5TAB PO; -METH2.5T PO; -METO25TA5 PO
[2023-05-29 11:33] LABS: Basophils # (auto) 0.1 10 ^3/uL (0-0.2); Eosinophils # (auto) 0.3 10 ^3/uL (0-0.8); Eosinophils % (auto) 4.1 % (0.0-7.0); Hematocrit 41.5 % (36.0-46.0); Hemoglobin 13.4 g/dL (12.2-16.2); Lymphocytes # (auto) 1.6 10 ^3/uL (0.4-5.4); Lymphocytes % (auto) 19.3 % (10.0-50.0); Mean Corpuscular Hemoglobin 29.9 pg (28.0-32.0); Mean Corpuscular Hgb Conc. 32.2 g/dL (32.0-36.0); Mean Corpuscular Volume 92.6 fL (80.0-100.0); Monocytes # (auto) 0.5 10 ^3/uL (0-1.3); Monocytes % (auto) 6.2 % (0.0-12.0); Neutrophils # (auto) 5.8 10 ^3/uL (1.6-8.6); Neutrophils % (auto) 69.4 % (37.0-80.0); Nucleated Red Blood Cells % 0.1 %; Red Blood Cells 4.48 10^6/uL (4.0-5.20); Red Cell Distribution Width 17.1 % (11.8-14.3); White Blood Cell 8.4 10^3/uL (4.4-10.8)
[2023-05-29 12:04] LABS: Alanine Aminotransferase 16 U/L (7-40); Albumin 4.5 g/dL (3.2-4.8); Alkaline Phosphatase 65 U/L (46-116); Anion Gap 6 (5-15); Aspartate Aminotransferase 11 U/L (13-40); BUN/Creatinine Ratio 19.7 (10.0-20.0); Blood Urea Nitrogen 15 mg/dL (9-23); Calcium 9.1 mg/dL (8.7-10.4); Carbon Dioxide 26 mmol/L (20-30); Chloride 106 mmol/L (98-107); Glucose 153 mg/dL (74-106); Potassium 4.6 mmol/L (3.5-5.1); Sodium 138 mmol/L (136-145)
[2023-05-29 12:05] LABS: Bilirubin, Total 0.7 mg/dL (0.2-1.0); Total Protein 6.9 g/dL (5.7-8.2)
== END | disposition home or self-care (01) ==
LOC: LAB 11:20
PROVIDERS: ATTEND Internal Medicine
DX: E11.22 Type 2 diabetes mellitus with diabetic chronic kidney disease (principal); N18.30 Chronic kidney disease, stage 3 unspecified; E11.42 Type 2 diabetes mellitus with diabetic polyneuropathy
CPT/HCPCS: 36415; 80053; 83036; 85025

== ENCOUNTER → 2023-06-17 | Outpatient (CLI) | payer MEDICARE, OTHER ==
[~2023-06-17] MED LIST changes: +CHOL20007 OR; +EMPA1TAB PO; +GABA-1308 PO; +HYDR200T36 PO; +LEUC5TAB PO; +METH2.5T PO; +METO25TA5 PO
[2023-06-17 10:00] VITALS: BP 116/64; PULSE 65; RESP 16; O2SAT 94
[2023-06-17 10:20] VITALS: BP 115/66; PULSE 63; RESP 16; O2SAT 94
== END | disposition home or self-care (01) ==
LOC: CHF HDHVI 09:48
PROVIDERS: ATTEND Internal Medicine Cardiovascular Disease
DX: I51.7 Cardiomegaly (principal); R94.31 Abnormal electrocardiogram [ECG] [EKG]; I95.89 Other hypotension; I50.33 Acute on chronic diastolic (congestive) heart failure
CPT/HCPCS: 93005; G0463

== ENCOUNTER 2023-06-19 09:17 | Day surgery (SDC) | payer MEDICARE, OTHER ==
[2023-06-17 12:55] LABS: Basophils # (auto) 0.1 10 ^3/uL (0-0.2); Eosinophils # (auto) 0.4 10 ^3/uL (0-0.8); Eosinophils % (auto) 4.4 % (0.0-7.0); Hematocrit 42.4 % (36.0-46.0); Hemoglobin 13.7 g/dL (12.2-16.2); Lymphocytes # (auto) 1.6 10 ^3/uL (0.4-5.4); Lymphocytes % (auto) 17.5 % (10.0-50.0); Mean Corpuscular Hemoglobin 29.9 pg (28.0-32.0); Mean Corpuscular Hgb Conc. 32.4 g/dL (32.0-36.0); Mean Corpuscular Volume 92.3 fL (80.0-100.0); Monocytes # (auto) 0.6 10 ^3/uL (0-1.3); Monocytes % (auto) 6.6 % (0.0-12.0); Neutrophils # (auto) 6.3 10 ^3/uL (1.6-8.6); Neutrophils % (auto) 70.5 % (37.0-80.0); Nucleated Red Blood Cells % 0.1 %; Red Blood Cells 4.59 10^6/uL (4.0-5.20); Red Cell Distribution Width 16.3 % (11.8-14.3); White Blood Cell 8.9 10^3/uL (4.4-10.8)
[2023-06-17 13:09] LABS: Chloride 106 mmol/L (98-107); Potassium 4.1 mmol/L (3.5-5.1); Sodium 139 mmol/L (136-145)
[2023-06-17 13:10] LABS: Anion Gap 6 (5-15); Calcium 9.7 mg/dL (8.5-10.1); Carbon Dioxide 27 mmol/L (20-30)
[2023-06-17 13:11] LABS: INR 0.97 (0.9-1.15); Partial Thromboplastin Time 25.8 SEC (24.5-34.5); Prothrombin Time 10.2 sec (9.3-11.8)
[2023-06-17 13:15] LABS: BUN/Creatinine Ratio 15.1 (10.0-20.0); Blood Urea Nitrogen 13 mg/dL (9-23); Glucose 116 mg/dL (74-106)
[~2023-06-19] VITALS: Ht 167.6 cm; Wt 122.5 kg
[~2023-06-19 09:17] MED LIST changes: -VALS320T PO
[2023-06-19] MEDS ORDERED: ANGIOMAX 250 MG VIAL IV ONE (11:56)
[2023-06-19] MEDS ORDERED: GLYCOPYRROLATE 0.2 MG/ML 1ML VIAL ONE (11:57)
[2023-06-19] MEDS ORDERED: SODIUM CHL 0.9% 0 ML ONE (11:57)
[2023-06-19] MEDS ORDERED: LIDOCAINE 2%HCL (LOCAL ANESTH.) INJ 20ML MDV ONE (11:58)
[2023-06-19] MEDS ORDERED: IOHEXOL 350 MG/ML 100ML IJ ONE (11:58)
== END 2023-06-19 14:43 | disposition home or self-care (01) ==
LOC: CATH 09:17
PROVIDERS: ATTEND Internal Medicine Cardiovascular Disease
DX: I65.21 Occlusion and stenosis of right carotid artery (principal); Q25.46 Tortuous aortic arch; I25.10 Atherosclerotic heart disease of native coronary artery without angina pectoris; I10 Essential (primary) hypertension; E78.5 Hyperlipidemia, unspecified; M34.9 Systemic sclerosis, unspecified; Z79.899 Other long term (current) drug therapy
CPT/HCPCS: 36415; 80048; 85025; 85610; 85730; C1769; C1894; J7030; Q9967; 36222; 99152

== ENCOUNTER → 2023-12-02 | Outpatient (CLI) | payer MEDICARE, OTHER ==
[~2023-12-02] MED LIST changes: -ATO40T PO; +ATOR-507 PO
[2023-12-02 09:39] LABS: Basophils # (auto) 0.1 10 ^3/uL (0-0.2); Eosinophils # (auto) 0.3 10 ^3/uL (0-0.8); Eosinophils % (auto) 5.1 % (0.0-7.0); Hematocrit 39.5 % (36.0-46.0); Hemoglobin 13.1 g/dL (12.2-16.2); Lymphocytes # (auto) 1.6 10 ^3/uL (0.4-5.4); Lymphocytes % (auto) 23.3 % (10.0-50.0); Mean Corpuscular Hgb Conc. 33.3 g/dL (32.0-36.0); Mean Corpuscular Volume 87.2 fL (80.0-100.0); Monocytes # (auto) 0.5 10 ^3/uL (0-1.3); Monocytes % (auto) 7.8 % (0.0-12.0); Neutrophils # (auto) 4.2 10 ^3/uL (1.6-8.6); Neutrophils % (auto) 62.8 % (37.0-80.0); Nucleated Red Blood Cells % 0.1 %; Red Blood Cells 4.53 10^6/uL (4.0-5.20); Red Cell Distribution Width 17.2 % (11.8-14.3); White Blood Cell 6.7 10^3/uL (4.4-10.8)
[2023-12-02 10:23] LABS: Urine Bacteria FEW /hpf (None Seen); Urine Blood Negative /uL (Negative); Urine Clarity Clear (Clear); Urine Color Light-Yellow (Yellow); Urine Protein, UAD Negative (Negative); Urine Specific Gravity 1.025 (1.001-1.035); Urine Urobilinogen Normal (Negative); Urine WBC 1 /hpf (0 - 5)
[2023-12-02 10:24] LABS: Alanine Aminotransferase 21 U/L (7-40); Albumin 4.4 g/dL (3.2-4.8); Alkaline Phosphatase 54 U/L (46-116); Anion Gap 5 (5-15); Aspartate Aminotransferase 11 U/L (13-40); BUN/Creatinine Ratio 12.9 (10.0-20.0); Bilirubin, Total 0.7 mg/dL (0.2-1.0); Blood Urea Nitrogen 11 mg/dL (9-23); Calcium 9.6 mg/dL (8.5-10.1); Carbon Dioxide 28 mmol/L (20-30); Chloride 106 mmol/L (98-107); Cholesterol 117 mg/dL (< 200); Glucose 161 mg/dL (74-106); HDL Cholesterol 56 mg/dL (40-59); LDL Cholesterol 42 mg/dL (< 100); Potassium 4.5 mmol/L (3.5-5.1); Sodium 139 mmol/L (136-145); Total Protein 6.7 g/dL (5.7-8.2); Triglycerides 80 mg/dL (< 150)
[2023-12-02 10:42] LABS: Erythrocyte Sedimentation Rate 14 mm/hr (0-20)
== END | disposition home or self-care (01) ==
LOC: LAB 09:26
PROVIDERS: ATTEND Internal Medicine
DX: E11.9 Type 2 diabetes mellitus without complications (principal); I10 Essential (primary) hypertension
CPT/HCPCS: 36415; 80053; 80061; 81001; 82043; 83036; 84439; 84443; 85025; 85652

== ENCOUNTER → 2024-07-16 | Outpatient (CLI) | payer MEDICARE, OTHER | END | disposition home or self-care (01) | LOC: Rad HDHVI 10:50 | PROVIDERS: ATTEND Internal Medicine Cardiovascular Disease | DX: R55 Syncope and collapse (principal) | CPT/HCPCS: 93306 ==

== ENCOUNTER → 2024-07-19 | Outpatient (CLI) | payer MEDICARE, OTHER ==
[2024-07-19 09:35] LABS: Basophils # (auto) 0.1 10 ^3/uL (0-0.2); Eosinophils # (auto) 0.3 10 ^3/uL (0-0.8); Monocytes # (auto) 0.4 10 ^3/uL (0-1.3); Monocytes % (auto) 5.1 % (0.0-12.0); Neutrophils # (auto) 5.9 10 ^3/uL (1.6-8.6); Neutrophils % (auto) 75.6 % (37.0-80.0)
[2024-07-19 09:41] LABS: Basophils % (auto) 0.6 % (0.0-2.0); Eosinophils % (auto) 3.9 % (0.0-7.0); Hematocrit 36.7 % (36.0-46.0); Lymphocytes # (auto) 1.2 10 ^3/uL (0.4-5.4); Lymphocytes % (auto) 14.8 % (10.0-50.0); Mean Corpuscular Hemoglobin 26.8 pg (28.0-32.0); Mean Corpuscular Hgb Conc. 32.7 g/dL (32.0-36.0); Mean Corpuscular Volume 81.9 fL (80.0-100.0); Platelet Count (auto) 318 10^3/uL (140-450); Red Blood Cells 4.48 10^6/uL (4.0-5.20); White Blood Cell 7.8 10^3/uL (4.4-10.8)
[2024-07-19 09:52] LABS: Urine Blood Negative /uL (Negative); Urine Clarity Clear (Clear); Urine Color Yellow (Yellow); Urine Protein, UAD TRACE (Negative); Urine Specific Gravity 1.027 (1.001-1.035); Urine Urobilinogen Normal (Negative); Urine pH 5.5 (5.0-9.0)
[2024-07-19 10:13] LABS: Erythrocyte Sedimentation Rate 23 mm/hr (0-20)
[2024-07-19 10:20] LABS: Alanine Aminotransferase 16 U/L (7-40); Alkaline Phosphatase 76 U/L (46-116); Anion Gap 9 (5-15); Carbon Dioxide 26 mmol/L (20-31); Chloride 104 mmol/L (98-107); Potassium 4.3 mmol/L (3.5-5.1); Sodium 139 mmol/L (136-145); Triglycerides 58 mg/dL (< 150)
[2024-07-19 10:21] LABS: BUN/Creatinine Ratio 24.7 (10.0-20.0); Blood Urea Nitrogen 20 mg/dL (9-23)
[2024-07-19 10:22] LABS: Albumin 4.7 g/dL (3.2-4.8); Aspartate Aminotransferase 14 U/L (13-40); LDL Cholesterol 43 mg/dL (< 100)
[2024-07-19 10:23] LABS: Bilirubin, Direct 0.3 mg/dL (<0.3); Bilirubin, Total 0.8 mg/dL (0.2-1.0); Cholesterol 114 mg/dL (< 200); HDL Cholesterol 58 mg/dL (40-59); Total Protein 7.1 g/dL (5.7-8.2)
[2024-07-19 10:26] LABS: Glucose 179 mg/dL (74-106)
== END | disposition home or self-care (01) ==
LOC: LAB 09:08
PROVIDERS: ATTEND Internal Medicine
DX: E11.9 Type 2 diabetes mellitus without complications (principal); I10 Essential (primary) hypertension; D51.3 Other dietary vitamin B12 deficiency anemia; D64.9 Anemia, unspecified; E55.9 Vitamin D deficiency, unspecified; R53.1 Weakness
CPT/HCPCS: 36415; 80048; 80061; 80076; 81003; 83036; 84443; 85025; 85652

== ENCOUNTER → 2024-09-28 | Outpatient (CLI) | payer MEDICARE, OTHER ==
[~2024-09-28] VITALS: Ht 160 cm; Wt 119.7 kg
[~2024-09-28] MED LIST changes: +ADENOSINE 101 MG in GIVE UN-DILUTED 0 ML IV ONE; +ADENOSINE 90 MG/30 ML INJ IV ONE
== END | disposition home or self-care (01) ==
LOC: Rad HDHVI 10:18
PROVIDERS: ATTEND Internal Medicine Cardiovascular Disease
DX: Z01.810 Encounter for preprocedural cardiovascular examination (principal); I49.1 Atrial premature depolarization; I49.3 Ventricular premature depolarization; R07.89 Other chest pain; I11.0 Hypertensive heart disease with heart failure; I50.33 Acute on chronic diastolic (congestive) heart failure; E11.21 Type 2 diabetes mellitus with diabetic nephropathy; E11.40 Type 2 diabetes mellitus with diabetic neuropathy, unspecified; E78.00 Pure hypercholesterolemia, unspecified; Z82.49 Family history of ischemic heart disease and other diseases of the circulatory system
CPT/HCPCS: 78452; 93017; A9500; J0153; 93005; 96374; 96375

== ENCOUNTER 2024-09-29 14:15 | Emergency (ER) | payer MEDICARE, OTHER ==
[~2024-09-29] VITALS: Ht 160 cm; Wt 119.5 kg
[~2024-09-29 14:15] MED LIST changes: -ADENOSINE 101 MG in GIVE UN-DILUTED 0 ML IV ONE; -ADENOSINE 90 MG/30 ML INJ IV ONE
--- NOTE | 2024-09-29 14:37 | ED.PDOC ---
History of Present Illness HPI Comments 73F presents to the ER w/ a walker and w/ no prior Hx of /D for 1 week. Pt reports on the /D comes and goes and has not seen the PCP. Pt notes that she does have a biopsy on Friday. PMHx of DM, CHF, CKF stage 2, HTN, High Lipids, and Hypothyroid. SHx of Cholecystectomy and Total Hysterectomy. Denies chills, fever, N/V, SOB, CP or no other associated symptoms, modifiers, recent injuries or sick contacts at this time. Time Seen by MD: 14:20 Reviewed Notes: Nurses Notes, Medications, Allergies Allergies: Coded Allergies: NO KNOWN ALLERGIES (Unverified , 06/12/18) Home Meds Reported Medications Leucovorin Calcium (Leucovorin Calcium) 5 Mg Tab, 5 MG PO QWEEKLY, TAB 06/17/23 Methotrexate (Methotrexate) 2.5 Mg Tab, 10 MG PO QWEEKLY, MG 06/17/23 Hydroxychloroquine Sulfate (Hydroxychloroquine Sulfat) 200 Mg Tab, 200 MG PO DAILY for 30 Days, MG 06/17/23 Gabapentin (Gabapentin) 100 Mg Cap, 1 CAP PO DAILYP PRN for PAIN SCALE 1 THRU 6, #90 CAP 2 Refills 06/17/23 Cholecalciferol (VITAMIN D3) 2,000 Unit Tab, 2000 UNIT OR DAILY, TAB 06/17/23 Metoprolol Tartrate (Metoprolol Tartrate) 25 Mg Tab, 25 MG PO DAILY for 30 Days, MG 06/17/23 Empagliflozin (Jardiance) 10 Mg Tab, 10 MG PO DAILY, TAB 06/17/23 Atorvastatin Calcium (Lipitor) 40 Mg Tab, 1 TAB PO DAILY, #30 TAB 5 Refills 03/24/15 Insulin Glargine (Lantus) 100 Units/Ml Vial, 35 UNITS SC HS, INJ 03/24/15 Insulin Lispro (Human) (Humalog Kwikpen) 100 Mg/Ml Inj, 10 UNITS SC AC, INJ 03/24/15 Naproxen Sodium (Aleve) 220 Mg Cap, 220 MG PO DAILY, CAP 03/24/15 Levothyroxine Sodium (Levothyroxine Sodium) 25 Mcg Tab, 50 MCG PO DAILY, TAB 10/04/14 Aspirin (Aspir-81) 81 Mg Tab, 81 MG PO DAILY 07/06/12 Calcium Carbonate-Cholecalcife (CALCIUM 600+D3) +D3 Tab, 600 MG PO DAILY 07/06/12 Metformin Hydrochloride (METFORMIN HCL ER) 1,000 Mg Tab, 1000 MG PO BID 07/06/12 Information Source: Patient Mode of Arrival: walker Severity: Moderate Timing: Days Duration: Since onset, Days Prehospital treatment: None Past Medical History PAST MEDICAL HISTORY: CHF, CKF (Stage 2), DM, High Lipids, HTN, Thyroid (Hypo) Surgical History: Cholecystectomy, Hysterectomy (Total) 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 Family History Family History: Reviewed,noncontributory to illness, Unknown Social History Smoker: Non-Smoker Alcohol: Denies ETOH Use Drugs: Denies Drug Use Lives In: Home Constitutional: denies: chills, diaphoresis, fatigue, fever, malaise, sweats, weakness, others EENTM: denies: blurred vision, double vision, ear bleeding, ear discharge, ear drainage, ear pain, ear ringing, eye pain, eye redness, hearing loss, mouth pain, mouth swelling, nasal discharge, nose bleeding, nose congestion, nose pain, photophobia, tearing, throat pain, throat swelling, voice changes, others Respiratory: denies: cough, hemoptysis, orthopnea, SOB at rest, shortness of breath, SOB with excertion, stridor, wheezing, others Cardiovascular: denies: chest pain, dizzy spells, diaphoresis, Dyspnea on exer tion, edema, irregular heart beat, left arm pain, lightheadedness, palpitations, PND, syncope, others Gastrointestinal: reports: diarrhea; denies: abdomen distended, abdominal pain, blood streaked bowels, constipated, dysphagia, difficulty swallowing, hematemesis, melena, nausea, poor appetite, poor fluid intake, rectal bleeding, rectal pain, vomiting, others Genitourinary: denies: abnormal vagina bleeding, burning, dyspareunia, dysuria, flank pain, frequency, hematuria, incontinence, pain, , vagina discharge, urgency, others Neurological: denies: dizziness, fainting, headache, left sided numbness, left sided weakness, numbness, paresthesia, pre-existing deficit, right sided numbness, right sided weakness, seizure, speech problems, tingling, tremors, weakness, others Musculoskeletal: denies: back pain, gout, joint pain, joint swelling, muscle pain, muscle stiffness, neck pain, others Integumetry: denies: bruises, change in color, change in hair/nails, dryness, laceration, lesions, lumps, rash, wounds, others Allergic/Immunocompromised: denies: Difficulty Healing, Frequent Infections, Hives, Itching, others Hematologic/Lymphatic: denies: anemia, blood clots, easy bleeding, easy bruising, swollen glands, others Endocrine: denies: excessive hunger, excessive sweating, excessive thirst, excessive urination, flushing, intolerance to cold, intolerance to heat, unexplained weight gain, unexplained weight loss, others Psychiatric: denies: anxiety, bipolar disorder, depression, hopeless, panic disorder, schizophrenia, sleepless, suicidal, others All Other Systems: Reviewed and Negative Physical Exam General Appearance: Moderate Distress, Normal HEENT: Normal ENT Inspection, Pharynx Normal, TMs Normal Neck: Full Range of Motion, Non-Tender, Normal, Normal Inspection Respiratory: Chest Non-Tender, Lungs Clear, No Accessory Muscle Use, No Respiratory Distress, Normal Breath Sounds Cardiovascular: No Edema, No JVD, No Murmur, No Gallop, Normal Peripheral Pulses, Regular Rate/Rhythm Breast Exam: Deferred Gastrointestinal: No Organomegaly, Non Tender, No Pulsatile Mass, Normal Bowel Sounds, Soft Genitalia: Deferred Pelvic: Deferred Rectal: Deferred Extremities: No calf tenderness, Normal capillary refill, Normal inspection, Normal range of motion, Non-tender, No pedal edema Musculoskeletal : Apperance: Normal Neurologic: Alert, director social II-XII nml as Tested, No Motor Deficits, Normal Affect, Normal Mood, No Sensory Deficits Cerebellar Function: Normal Reflexes: Normal Skin: Dry, Normal Color, Warm Peripheral Pulses: 3+ Radial (R), 3+ Radial (L) Lymphatic: No Adenopathy Was a procedure done? Was a procedure done?: No Differential Dx Considerations may include: Gastroenteritis Electrolyte imbalance X-Ray, Labs, Meds, VS Patient alert. Complaining of diarrhea for a week. Had seafood prior to her symptom. Vitals stable. Possible gastroenteritis. Establish intravenous access. Reviewed her history. Explained to the patient. Continue monitoring. Time of 1ST Reevaluation: 14:50 Reevaluation 1ST: Unchanged Patient Education/Counseling: Diagnosis, Treatment, Prognosis, Pt Unresponsive Family Education/Counseling: No Family Present Departure 1 Departure Time of Disposition: 14:57 Impression: Primary Impression: Gastroenteritis and colitis, viral Disposition: 09 ADMITTED INPATIENT Admit to: Med Surg Condition: Guarded Critical Care Note Critical Care Time?: No Stability Stability form required: No Heart Score Heart Score: Heart Score Response (Comments) Value History N/A 0 EKG N/A 0 Age N/A 0 Risk Factors N/A 0 Troponin N/A 0 Total 0 I personally scribed for GUILLE JONES MD ([email or web address]) on 09/29/24 at 14:37. Electronically submitted by Ra Lockhart ([email or web address]). GUILLE JONES MD Sep 29, 2024 14:37
[2024-09-29 15:04] LABS: Basophils # (auto) 0.1 10 ^3/uL (0-0.2); Basophils % (auto) 0.5 % (0.0-2.0); Eosinophils # (auto) 1.8 10 ^3/uL (0-0.8); Eosinophils % (auto) 13.4 % (0.0-7.0); Hematocrit 40.7 % (36.0-46.0); Hemoglobin 12.9 g/dL (12.2-16.2); Lymphocytes # (auto) 1.8 10 ^3/uL (0.4-5.4); Lymphocytes % (auto) 13.8 % (10.0-50.0); Mean Corpuscular Hemoglobin 25.2 pg (28.0-32.0); Mean Corpuscular Hgb Conc. 31.7 g/dL (32.0-36.0); Mean Corpuscular Volume 79.6 fL (80.0-100.0); Monocytes # (auto) 0.7 10 ^3/uL (0-1.3); Monocytes % (auto) 5.4 % (0.0-12.0); Neutrophils # (auto) 8.9 10 ^3/uL (1.6-8.6); Neutrophils % (auto) 66.9 % (37.0-80.0); Nucleated Red Blood Cells % 0.1 %; Platelet Count (auto) 390 10^3/uL (140-450); Red Blood Cells 5.11 10^6/uL (4.0-5.20); White Blood Cell 13.3 10^3/uL (4.4-10.8)
[2024-09-29 15:05] LABS: Red Cell Distribution Width 20.8 % (11.8-14.3)
[2024-09-29 15:29] LABS: Anion Gap 11 (5-15); Chloride 104 mmol/L (98-107); Potassium 3.7 mmol/L (3.5-5.1)
[2024-09-29 15:30] LABS: Calcium 9.1 mg/dL (8.7-10.4)
[2024-09-29 15:33] LABS: Carbon Dioxide 18 mmol/L (20-31); Sodium 133 mmol/L (136-145)
[2024-09-29 15:35] LABS: BUN/Creatinine Ratio 19.1 (10.0-20.0); Blood Urea Nitrogen 17 mg/dL (9-23)
[2024-09-29 15:36] LABS: Glucose 174 mg/dL (74-106)
[2024-09-29 17:42] VITALS: BP 101/58; PULSE 95; RESP 18; TEMP 97.9; O2SAT 92
--- NOTE | 2024-09-29 18:48 | DVH ---
Exam: CT CT AB PEL WO CON-NO ORAL OR IV History: colitis Comparison Study: [facility] on DOS: 04/17/22, [facility] on DOS: 02/09/21 TECHNIQUE: Multidetector CT of the abdomen and pelvis was performed from lung bases to pubic symphysi s. Imaging was performed without IV contrast. Axial, coronal, and sagittal multiplanar reformats were obtained from the axial data set by the technologist. RADIATION DOSE: DLP 1372.11 mGy.cm; CTDI vol 25.4 mGy. Findings: Lungs: The lung bases are clear. Heart: No cardiomegaly or pericardial effusion. Moderate to severe coronary atherosclerosis. Liver: Unremarkable. Gallbladder: Cholecystectomy. Spleen: Unremarkable Pancreas: Unremarkable Adrenals: Unremarkable Kidneys: Unremarkable GI tract: Unremarkable. No definite bowel wall thickening or adjacent inflammatory changes. : Unremarkable. Vasculature: Moderate aortoiliac atherosclerosis. Lymphadenopathy: Absent Peritoneum: No ascites Musculoskeletal: Severe multilevel degenerative changes of the thoracolumbar spine. Soft tissues: Unremarkable Impression: 1. No acute abdominopelvic abnormalities.
[2024-09-29 19:18] LABS: Urine Bacteria FEW /hpf (None Seen); Urine Blood Negative /uL (Negative); Urine Budding Yeast OCCASIONAL /hpf (None Seen); Urine Clarity Turbid (Clear); Urine Color Light-Yellow (Yellow); Urine Protein, UAD TRACE (Negative); Urine Specific Gravity 1.029 (1.001-1.035); Urine Squamous Epithelial Cell MOD /hpf (<5); Urine Urobilinogen Normal (Negative); Urine WBC 4 /HPF (0-5); Urine pH 5.5 (5.0-9.0)
== END 2024-09-29 22:48 | disposition left against medical advice (07) ==
LOC: ER 14:15
DX: K52.9 Noninfective gastroenteritis and colitis, unspecified (principal); A08.4 Viral intestinal infection, unspecified; E11.9 Type 2 diabetes mellitus without complications; E03.9 Hypothyroidism, unspecified; I11.0 Hypertensive heart disease with heart failure; I50.9 Heart failure, unspecified; Z79.82 Long term (current) use of aspirin; Z90.49 Acquired absence of other specified parts of digestive tract; Z90.710 Acquired absence of both cervix and uterus; Z79.899 Other long term (current) drug therapy; Z79.890 Hormone replacement therapy; Z79.84 Long term (current) use of oral hypoglycemic drugs
CPT/HCPCS: 36415; 74176; 80048; 81001; 82947; 82962; 84484; 85025

== ENCOUNTER 2025-01-19 12:14 | Outpatient (CLI) | payer MEDICARE, OTHER | END 2025-01-19 17:00 | disposition home or self-care (01) | LOC: Rad HDHVI 12:14 | PROVIDERS: ATTEND Internal Medicine Cardiovascular Disease | DX: I73.9 Peripheral vascular disease, unspecified (principal); R53.1 Weakness | CPT/HCPCS: 93926 ==

== ENCOUNTER 2025-02-10 11:58 | Outpatient (CLI) | payer MEDICARE, OTHER ==
[2025-02-10 12:15] LABS: Nucleated Red Blood Cells % 0.0 %
[2025-02-10 12:16] LABS: Hematocrit 35.9 % (36.0-46.0); Hemoglobin 11.6 g/dL (12.2-16.2); Mean Corpuscular Hemoglobin 24.7 pg (28.0-32.0); Mean Corpuscular Volume 76.8 fL (80.0-100.0)
[2025-02-10 12:37] LABS: Alanine Aminotransferase 15 U/L (7-40); Alkaline Phosphatase 67 U/L (46-116); Anion Gap 8 (5-15); BUN/Creatinine Ratio 18.8 (10.0-20.0); Blood Urea Nitrogen 15 mg/dL (9-23); Calcium 9.0 mg/dL (8.7-10.4); Carbon Dioxide 25 mmol/L (20-31); Chloride 104 mmol/L (98-107); Potassium 4.6 mmol/L (3.5-5.1); Sodium 137 mmol/L (136-145); Total Protein 6.9 g/dL (5.7-8.2)
[2025-02-10 12:38] LABS: Albumin 4.3 g/dL (3.2-4.8); Bilirubin, Total 0.7 mg/dL (0.2-1.0)
[2025-02-10 12:39] LABS: Glucose 161 mg/dL (74-106)
[2025-02-10 13:11] LABS: Microalb/Creat Ratio, Urine 34.0
[2025-02-11 14:28] LABS: Free T4 (Free Thyroxine) 1.32 ng/dL (0.89-1.76)
== END 2025-02-10 17:00 | disposition home or self-care (01) ==
LOC: LAB 11:58
PROVIDERS: ATTEND Internal Medicine
DX: I10 Essential (primary) hypertension (principal); E11.42 Type 2 diabetes mellitus with diabetic polyneuropathy
CPT/HCPCS: 36415; 80053; 82043; 82570; 82607; 83036; 84439; 85025

== ENCOUNTER 2025-03-15 13:25 | Outpatient (CLI) | payer MEDICARE, OTHER ==
[2025-03-15 13:32] VITALS: BP 108/67; PULSE 78; RESP 16; O2SAT 95
[2025-03-15] MEDS: IRON SUCROSE 20 mg/ml 10ml VIAL IV ONE (13:36)
[2025-03-15] MEDS: IRON SUCROSE COMPLEX 110 ML IV ONE (13:39)
[2025-03-15 14:42] VITALS: BP 118/63; PULSE 77; RESP 16; O2SAT 95
== END 2025-03-15 17:00 | disposition home or self-care (01) ==
LOC: CHF HDHVI 13:25
PROVIDERS: ATTEND Internal Medicine Cardiovascular Disease
DX: K90.9 Intestinal malabsorption, unspecified (principal); I10 Essential (primary) hypertension; E11.42 Type 2 diabetes mellitus with diabetic polyneuropathy
CPT/HCPCS: 96365; G0463; J1756

== ENCOUNTER 2025-03-21 12:49 | Outpatient (CLI) | payer MEDICARE, OTHER ==
[2025-03-21 12:57] VITALS: BP 123/84; PULSE 72; RESP 16; O2SAT 94
[2025-03-21 13:13] VITALS: BP 114/68; PULSE 72; RESP 16; O2SAT 94
[2025-03-23] MEDS ORDERED: SEMA2INJ3 SC (09:49)
[2025-03-23] MEDS ORDERED: TIOT1AER2 IN (09:49)
== END 2025-03-21 17:00 | disposition home or self-care (01) ==
LOC: CHF HDHVI 12:49
PROVIDERS: ATTEND Internal Medicine Cardiovascular Disease
DX: Z01.810 Encounter for preprocedural cardiovascular examination (principal); I50.9 Heart failure, unspecified; G45.8 Other transient cerebral ischemic attacks and related syndromes
CPT/HCPCS: 93005; G0463

== ENCOUNTER 2025-03-22 13:21 | Outpatient (CLI) | payer MEDICARE, OTHER ==
[~2025-03-22] VITALS: Ht 30.5 cm; Wt 0.5 kg
[2025-03-22 13:25] VITALS: BP 136/74; PULSE 77; RESP 16; O2SAT 96
[2025-03-22] MEDS: IRON SUCROSE COMPLEX 110 ML IV ONE (13:27)
[2025-03-22] MEDS: IRON SUCROSE 20 mg/ml 10ml VIAL IV ONE (13:32)
[2025-03-22 14:34] VITALS: BP 115/62; PULSE 71; RESP 16; O2SAT 96
[2025-03-23] MEDS ORDERED: SEMA2INJ3 SC (09:49)
[2025-03-23] MEDS ORDERED: TIOT1AER2 IN (09:49)
== END 2025-03-22 17:00 | disposition home or self-care (01) ==
LOC: CHF HDHVI 13:21
PROVIDERS: ATTEND Internal Medicine Cardiovascular Disease
DX: D50.8 Other iron deficiency anemias (principal); K90.9 Intestinal malabsorption, unspecified; E66.9 Obesity, unspecified; I10 Essential (primary) hypertension; E11.42 Type 2 diabetes mellitus with diabetic polyneuropathy
CPT/HCPCS: 96365; G0463; J1756

== ENCOUNTER 2025-03-24 07:56 | Day surgery (SDC) | payer MEDICARE, OTHER ==
[2025-03-21 15:47] LABS: Nucleated Red Blood Cells % 0.0 %
[2025-03-21 15:48] LABS: Hematocrit 34.1 % (36.0-46.0); Hemoglobin 11.4 g/dL (12.2-16.2); Mean Corpuscular Hemoglobin 25.8 pg (28.0-32.0); Mean Corpuscular Volume 77.3 fL (80.0-100.0)
[2025-03-21 16:05] LABS: INR 0.99 (0.9-1.15); Partial Thromboplastin Time 24.6 SEC (24.5-34.5); Prothrombin Time 10.5 sec (9.3-11.8)
[2025-03-21 16:26] LABS: Chloride 103 mmol/L (98-107); Potassium 4.1 mmol/L (3.5-5.1); Sodium 139 mmol/L (136-145)
[2025-03-21 16:27] LABS: Anion Gap 12 (5-15); Carbon Dioxide 24 mmol/L (20-31)
[2025-03-21 16:28] LABS: Calcium 9.5 mg/dL (8.7-10.4)
[2025-03-21 16:33] LABS: BUN/Creatinine Ratio 18.4 (10.0-20.0); Blood Urea Nitrogen 14 mg/dL (9-23); Glucose 142 mg/dL (74-106)
[~2025-03-24] VITALS: Ht 160 cm; Wt 115.7 kg
[2025-03-24] VITALS (9 sets, daily range): BP systolic 129–159; BP diastolic 56–81; PULSE 76–81; RESP 11–16; TEMP 97.9; O2SAT 94–97
[~2025-03-24 07:56] MED LIST changes: -EMPA1TAB PO; -GABA-1308 PO; -METH2.5T PO; -METO25TA5 PO; +SEMA2INJ3 SC; +TIOT1AER2 IN
[2025-03-24] MEDS ORDERED: IOHEXOL 350 MG/ML 100ML IJ ONE (11:44)
[2025-03-24] MEDS ORDERED: fentaNYL CITRATE 100 MCG/2 ML VL ONE (12:01)
[2025-03-24] MEDS ORDERED: LIDOCAINE 2%HCL (LOCAL ANESTH.) INJ 20ML MDV ONE (12:01)
[2025-03-24] MEDS ORDERED: MIDAZOLAM HCL 2MG/2ML 2ml VIAL (1mg/ml) ONE (12:01)
[2025-03-24] MEDS ORDERED: SODIUM CHL 0.9% 50 ML ONE ×2 (12:24→12:36)
[2025-03-24] MEDS ORDERED: ANGIOMAX 250 MG VIAL IV ONE ×2 (12:24→12:36)
[2025-03-24] MEDS ORDERED: NITROGLYCERIN 0.4MG/DOSE SPRAY 4.9GM ONE (12:49)
[2025-03-24] MEDS ORDERED: CLOPIDOGREL BISULFATE 75 MG TAB ONE (13:07)
--- NOTE | 2025-03-25 14:42 | DVHDS ---
DATE OF DISCHARGE: 03/24/2025 DISCHARGE DIAGNOSES: * Occluded left subclavian, status post revascularization of left subclavian with stent placement with thrombectomy. * Angioplasty with thrombectomy of the right iliac. * Hypertension. * Diabetes. * Hyperlipidemia. The patient clinically stable. Now being discharged home. Follow up with me in one week. Stable at the time of discharge. ACTIVITY: As instructed. DIET: 2 gram sodium diet. Robb Lee MD SA/JEANINE TID: [id number] RECEIPT: [id number]
--- NOTE | 2025-03-25 14:46 | DVHHP ---
ADMIT DATE: 03/24/2025 HISTORY OF PRESENT ILLNESS: The patient is 74 years old with a history of hypertension, hyperlipidemia, and diabetes. Now presents with sign and symptom complex with increasing shortness of breath and also left upper extremity weakness. A Doppler was performed of the left subclavian and showed high-grade narrowing of the ostium of the left subclavian. Because of this finding, it is felt that the patient should undergo angiography to rule out subclavian steal syndrome/left subclavian stenosis. The patient will require revascularization. She has multiple risk factors for peripheral vascular disease, not only because of hypertension, obesity, age, hyperlipidemia, as well as diabetes. Risks and benefits were explained to the patient. The patient understands and agrees. REVIEW OF SYSTEMS: She denies any fevers, chills, melena, hematochezia, hematemesis, or hemoptysis. No bleeding diathesis of any kind. No hematuria as well. Denies any connective tissue disease. Denies any infiltrative processes such as amyloidosis or carcinoid syndrome. Denies any recent trauma. No history of irritable bowel syndrome or inflammatory bowel disease. No history of COPD. No previous history of myocardial infarction. PHYSICAL EXAMINATION: VITAL SIGNS: Blood pressure is 134/80, pulse 76 and regular. O2 saturation is 98% on room air. HEENT: Pupils are reactive. Funduscopic exam is benign. Sclerae anicteric. Extraocular muscles are intact. Oral mucosa is moist. NECK: No JVD appreciated. Carotid pulses are 2+ and symmetrical. Normal upstroke and contour. No cervical adenopathy. No supraclavicular adenopathy. PULMONARY: Clear to auscultation in all lung allen. Tympanic to percussion. CARDIOVASCULAR: Regular rate. PMI is not displaced. ABDOMEN: Obese, unable to appreciate organomegaly. SKIN: Unremarkable. EXTREMITIES: 1+ edema bilaterally. ASSESSMENT AND PLAN: Thus, the patient with a left subclavian steal syndrome, now to undergo left subclavian angiography, right brachiocephalic angiography. RECOMMENDATIONS: I will make further recommendations after the angiogram. Robb Lee MD SA/EKT TID: [id number] RECEIPT: [id number]
--- NOTE | 2025-03-25 15:09 | DVHOP ---
DATE OF SURGERY: 03/24/2025 PROCEDURES PERFORMED: * Left subclavian ostial stent placement of the Express 8 x 27 mm stent with shockwave thrombectomy with a 5 mm shockwave catheter. * Right iliac status post thrombectomy with 8 mm shockwave catheter with equalization of pressure. * Conscious sedation. Risks and benefits were explained to the patient. PROCEDURE: The patient was prepped and draped in a sterile condition. Xylocaine 1% was used to anesthetize the right groin. Using a Cook needle, the right femoral artery was engaged via Seldinger technique, a 6-Slovak sheath was introduced into the right femoral artery. We needed to use an angled Terumo Monson catheter to get past the ostium of the right iliac. The patient had an ostial narrowing of about 90%. Abdominal aortography was performed with runoff. It showed the patient to have a 90% narrowing of the takeoff of the right common iliac, but we were able to cannulate the left and right carotid artery as well. Following that, the 6-Slovak diagnostic system was exchanged for a 6-Slovak interventional system. It was then upsized to an 8 mm, 8-Slovak system. The 6-Slovak sheath was exchanged for an 8-Slovak sheath. Then, using an 8-Slovak multipurpose guide catheter, we were able to cannulate the ostium of the left subclavian. A ChoICE PT extra support wire was crossed across the lesion. It was then thrombectomized using a 5 mm x 6 cm balloon. It was deployed on 3 separate occasions, mostly in the midportion of the circumflex territory as well as the ostial portion of the takeoff of the left subclavian. Post-thrombectomy with a shockwave catheter, we were able to place an 8 x 27 mm Express stent at the ostium of the left subclavian. It was deployed at 14 atmospheres. There were no complications. The patient tolerated the procedure well, but because the proximal iliac had ostial stenosis of greater than 90%, if we were to require repeat revascularization, require more complex procedure to be elected to revascularize the right iliac. Using the angled Terumo wire, we held it in position. A short sheath was placed that was long enough to reach the ostium of the iliac. Then, an 8 mm x 30 mm shockwave balloon was used to thrombectomize the ostium of the right iliac. Following that, a pressure gradient was obtained from the left above the stenosis and below the stenosis with equalization of pressure. We elected not to stent at this time because that would mean revascularizing from both and a double stent needed to be placed. If the patient's left subclavian artery in no way is offering her the support she requires, vascular surgical consultation and stent may be required as well. CONCLUSION: Thus, the patient with successful revascularization of the left subclavian with stent placement to revascularization of the right iliac, with thrombectomy without stent placement. Robb Lee MD SA/OLEG/JENARO TID: [id number] RECEIPT: [id number]
== END 2025-03-24 15:32 | disposition home or self-care (01) ==
LOC: CATH 07:56
PROVIDERS: ATTEND Internal Medicine Cardiovascular Disease
DX: G45.8 Other transient cerebral ischemic attacks and related syndromes (principal); I77.1 Stricture of artery; I73.89 Other specified peripheral vascular diseases; R06.02 Shortness of breath; I10 Essential (primary) hypertension; E11.9 Type 2 diabetes mellitus without complications; E78.5 Hyperlipidemia, unspecified; E66.9 Obesity, unspecified; Z68.42 Body mass index [BMI] 45.0-49.9, adult; Z79.4 Long term (current) use of insulin; Z79.82 Long term (current) use of aspirin; Z79.84 Long term (current) use of oral hypoglycemic drugs; Z79.899 Other long term (current) drug therapy; Z87.891 Personal history of nicotine dependence; Z82.49 Family history of ischemic heart disease and other diseases of the circulatory system; Z83.3 Family history of diabetes mellitus
CPT/HCPCS: 37186; 37236; 37799; 75630; C1725; C1760; C1769; C1876; C1887; C1894; C9764; J0583; J1644; J2250; J3010; Q9967; 36222; 36415; 37184; 37185; 80048; 85025; 85610; 85730; 99152; 99153

== ENCOUNTER 2025-05-11 15:19 | Outpatient (CLI) | payer MEDICARE, OTHER | END 2025-05-11 17:00 | disposition home or self-care (01) | LOC: Rad HDHVI 15:19 | PROVIDERS: ATTEND Internal Medicine Cardiovascular Disease | DX: I73.9 Peripheral vascular disease, unspecified (principal); I70.90 Unspecified atherosclerosis | CPT/HCPCS: 93926 ==